=== PATIENT | female | born 1940 | race Caucasian/White ===

== ENCOUNTER 2020-11-15 15:37 | Emergency (ER) | payer MEDICARE, OTHER ==
[2020-11-15 19:34] LABS: BASOPHIL 0.9 % (0-2); EOSINOPHIL 1.4 % (0-7); HCT 32.9 % (37.0-47.0); HGB 10.5 g/dl (12.5-16.0); LYMPHOCYTE 38.7 % (15-48); MCHC 31.9 g/dL (32.0-36.0); MCV 97.1 fL (78.0-100.0); MONOCYTE 17.4 % (0-12); MPV 11.6 fL (6.0-9.5); NEUTROPHIL 41.4 % (41-80); NRBC 0; PLT 233 K/uL (150-400); RBC 3.39 M/uL (4.20-5.40); RDW 15.4 % (11.5-14.0); WBC 5.8 K/uL (4.0-10.5)
[2020-11-15 19:45] LABS: ALBUMIN 3.7 g/dL (3.4-5.0); BILIRUBIN - TOTAL 0.4 mg/dL (0.2-1.0); BUN/CREAT RATIO (CALC) 16.9 RATIO; C-REACTIVE PROTEIN 0.6 mg/dL (<=0.90); CREATININE 0.77 mg/dL (0.51-0.95); GLOBULIN (CALCULATION) 3.5 g/dL; POTASSIUM 3.7 mmol/L (3.5-5.1); TOTAL PROTEIN 7.2 g/dL (6.4-8.2)
[2020-11-15 19:56] LABS: AMPHETAMINES NEGATIVE (NEGATIVE); BARBITURATES NEGATIVE (NEGATIVE); BILIRUBIN NEGATIVE (NEGATIVE); BLOOD TRACE-INTACT Ery/uL (NEGATIVE); CLARITY CLEAR (CLEAR); COLOR YELLOW (YELLOW); ECSTASY (MDMA) NEGATIVE (NEGATIVE); GLUCOSE (U) NORMAL (NORMAL); LEUKOCYTES NEGATIVE Leu/uL (NEGATIVE); MARIJUANA (THC) NEGATIVE (NEGATIVE); METHADONE NEGATIVE (NEGATIVE); NITRITE NEGATIVE (NEGATIVE); OPIATES NEGATIVE (NEGATIVE); OXYCODONE NEGATIVE (NEGATIVE); PROTEIN NEGATIVE (NEGATIVE); UROBILINOGEN 0.2 mg/dL (0.2-1.0)
[2020-11-15 20:02] LABS: BACTERIA TRACE; MUCOUS MODERATE; SQUAMOUS EPITHELIAL CELLS RARE
== END 2020-11-15 21:00 | disposition home or self-care (01) ==
LOC: FER 15:37
PROVIDERS: Internal Medicine
DX: R19.7 Diarrhea, unspecified (principal); Z88.8 Allergy status to other drugs, medicaments and biological substances
CPT/HCPCS: 36415; 80053; 80305; 81001; 83605; 83690; 85025; 86140